=== PATIENT | female | born 2000 | race Caucasian/White ===

== ENCOUNTER 2019-01-16 00:01 | Inpatient (IN) | payer OTHER ==
[~2019-01-16] VITALS: Ht 162.6 cm; Wt 99.0 kg
[~2019-01-16 00:01] MED LIST: DEPO-PROVER150 MG/ML IM; IBUPROFEN400 MG PO
--- NOTE | 2019-01-17 11:22 | PR ---
[facility] [address] [facility] [place], [place] [address] Signed Progress Notes IP Datetime Report Generated by CPN: 01/17/2019 11:22 PROGRESS NOTES: [id number] Impression: Normal progression of labor; Reassuring heart rate Plan: Continue present management; Anticipate Vaginal Delivery Informed Consent Obtain: Vaginal Delivery VITAL SIGNS: [id number] Vital Signs: Reviewed; Within Normal Limits EXAM: [id number] Dilatation: 6.0 Effacement: 100 Station: -2 Uterine Contractions: q 1-3 minutes MEMBRANES: [id number] Membrane Status: Intact Comments: Pt seen and evaluted. Doing well. Comfortable w / epidural. Pt making good cervical change. Will continue to monitor FHT closely. Anticipate Fetus A: [id number] FHR Baseline: 150 Variability: Moderate 6-25bpm Accelerations: 15X15 Decelerations: Late FHR Category: Category II Presentation: Vertex Comments on Fetus A: No evidence of metabolic acidosis Fetus B: [id number] Signing Physician: Haydee Hi DO Copies: ~ *Electronically Signed* 01/17/19 1122 HAYDEE HI DO PATIENT NAME: JEAN-CLAUDE WOO PROGRESS NOTE DATE OF : 99 PHYSICIAN: HAYDEE HI DO RPT #: [id number] REPORT IS CONFIDENTIAL AND NOT TO BE RELEASED WITHOUT AUTHORIZATION
--- NOTE | 2019-01-17 13:34 | PR ---
[facility] [address] [place], [place] [address] Signed Progress Notes IP Datetime Report Generated by CPN: 01/17/2019 13:34 PROGRESS NOTES: [id number] Impression: Normal progression of labor Procedures: Artificial ROM Plan: Anticipate Vaginal Delivery Informed Consent Obtain: Vaginal Delivery VITAL SIGNS: [id number] Vital Signs: Reviewed; Within Normal Limits EXAM: [id number] Dilatation: 8.5 Effacement: 95 Station: -2 Uterine Contractions: q 1-3 minutes MEMBRANES: [id number] Membrane Status: Ruptured Amniotic Fluid Color: Meconium, Heavy ROM Note: Reviewed AROM and verbal consent obtained. AROM performed easily after confirming vertex well applied. Thick meconium stained fluid noted. Reviewed w/ pt Comments: Pt seen and examined. Doing well. Comfortable w/ ctxs. AROM performed as above. FHT reassuring. Continue expectant management and anticipate . All questions answered. Fetus A: [id number] FHR Baseline: 150 Variability: Moderate 6-25bpm Accelerations: 15X15 Decelerations: Variable FHR Category: Category II Presentation: Vertex Comments on Fetus A: No evidence of metabolic acidosis Fetus B: [id number] Signing Physician: Haydee Hi DO Copies: ~ *Electronically Signed* 01/17/19 1334 HAYDEE HI DO PATIENT NAME: JEAN-CLAUDE WOO PROGRESS NOTE DATE OF : 99 PHYSICIAN: HAYDEE HI #: [id number] REPORT IS CONFIDENTIAL AND NOT TO BE RELEASED WITHOUT AUTHORIZATION
--- NOTE | 2019-01-17 15:30 | PR ---
[facility] [address] [place], [place] [address] Signed Progress Notes IP Datetime Report Generated by CPN: 01/17/2019 15:30 PROGRESS NOTES: [id number] Impression: Normal progression of labor Procedures: Sterile Vag Exam Plan: Continue present management; Anesthesia consult Other Plans: Anesthesia eval for epidural re-bolus Informed Consent Obtain: Vaginal Delivery VITAL SIGNS: [id number] Vital Signs: Reviewed; Within Normal Limits EXAM: [id number] Dilatation: 9.0 Effacement: 100 Station: 0 Uterine Contractions: Difficult to trace w/ tocometer. Q 2-3 min per pt MEMBRANES: [id number] Membrane Status: Ruptured Amniotic Fluid Color: Meconium, Heavy ROM Note: Reviewed AROM and verbal consent obtained. AROM performed easily after confirming vertex well applied. Thick meconium stained fluid noted. Reviewed w/ pt Comments: Pt seen and evaluated. Doing well, but Ctxs more uncomfortable and having some nausea/vomiting. Anesthesia notified to evaluate for epidural bolus. Anticipate . Reviewed anticipated course of delivery w/ pt. All questions answered Fetus A: [id number] FHR Baseline: 145 Variability: Moderate 6-25bpm Accelerations: 15X15 Decelerations: Early FHR Category: Category I Presentation: Vertex Other Presentation: KALI Comments on Fetus A: No evidence of metabolic acidosis Fetus B: [id number] Signing Physician: Haydee Hi DO Copies: *Electronically Signed* 01/17/19 4998 HAYDEE HI DO PATIENT NAME: JEAN-CLAUDE WOO PROGRESS NOTE DATE OF : 99 PHYSICIAN: HAYDEE HI DO RPT #: [id number] REPORT IS CONFIDENTIAL AND NOT TO BE RELEASED WITHOUT AUTHORIZATION [address] [place], [place] [address] Signed ~ *Electronically Signed* 01/17/19 1530 HAYDEE HI DO PATIENT NAME: JEAN-CLAUDE WOO PROGRESS NOTE DATE OF : 99 PHYSICIAN: HAYDEE HI DO RPT #: [id number] REPORT IS CONFIDENTIAL AND NOT TO BE RELEASED WITHOUT AUTHORIZATION
--- NOTE | 2019-01-18 09:05 | PR ---
[facility] [address] [facility] [place], [place] [address] Signed PP Progress Notes Datetime Report Generated by CPN: 01/18/2019 09:05 SUBJECTIVE: [id number] Pain: Within normal limits Nausea/Vomiting: Denies Flatus: No Bowel Movement: No Vital Signs: [id number] Vital Signs: Reviewed EXAM: [id number] Cardiovascular: Normal Respiratory: Normal Abdomen/Uterus: Normal Lochia: Normal Vulva/Perineum: Not Done Breasts: Normal CVA Tenderness: Normal Extremities: Normal Incision: Not Applicable Progress: Normal Exam Comments: Fundus firm U -2 nontender IMPRESSION/PLAN/PROCEDURES: [id number] Impression: Normal progression Plan: Continue present management Progress Notes: Pt seen and examined. Doing well. Ambulating and tolerating full diet. Robert cath in place. well. Signing Physician: Haydee Hi DO Copies: ~ *Electronically Signed* 01/18/19 09 HAYDEE HI DO PATIENT NAME: JEAN-CLAUDE WOO PROGRESS NOTE DATE OF : 99 PHYSICIAN: HAYDEE HI DO RPT #: [id number] REPORT IS CONFIDENTIAL AND NOT TO BE RELEASED WITHOUT AUTHORIZATION
--- NOTE | 2019-01-19 12:17 | PR ---
[facility] [address] [facility] [place], [place] [address] Signed PP Progress Notes Datetime Report Generated by CPN: 01/19/2019 12:17 SUBJECTIVE: [id number] Pain: Within normal limits Nausea/Vomiting: Present Flatus: Yes Bowel Movement: Yes Vital Signs: [id number] Vital Signs: Reviewed; Within Normal Limits EXAM: [id number] Cardiovascular: Normal Respiratory: Normal Abdomen/Uterus: Normal Lochia: Normal Vulva/Perineum: Not Done Breasts: Not Done CVA Tenderness: Normal Extremities: Normal Incision: Not Applicable Progress: Normal Exam Comments: Fundus firm U-2 nontender IMPRESSION/PLAN/PROCEDURES: [id number] Impression: Normal progression Plan: Discharge Progress Notes: Pt seen and examined. Doing well. Ambulating, voiding, and tolerating full diet. Pain and lochia minimal. Bowel movement withtout difficulty. well. Desires d/c home Signing Physician: Haydee Hi DO Copies: ~ *Electronically Signed* 01/19/19 1217 HAYDEE HI DO PATIENT NAME: FÉLIX WOODRA ANDREW PROGRESS NOTE DATE OF : 99 PHYSICIAN: HAYDEE HI DO RPT #: [id number] REPORT IS CONFIDENTIAL AND NOT TO BE RELEASED WITHOUT AUTHORIZATION
== END 2019-01-19 16:40 | disposition home or self-care (01) | DRG 768 ==
LOC: FBC 00:01
PROVIDERS: ADMIT Obstetrics & Gynecology
PROC: 10E0XZZ Delivery of Products of Conception, External Approach (ICD-10-PCS; principal; 2019-01-17)
PROC: 0DQR0ZZ Repair Anal Sphincter, Open Approach (ICD-10-PCS; 2019-01-17)
PROC: 10907ZC Drainage of Amniotic Fluid, Therapeutic from Products of Conception, Via Natural or Artificial Opening (ICD-10-PCS; 2019-01-17)
PROC: 3E0P7VZ Introduction of Hormone into Female Reproductive, Via Natural or Artificial Opening (ICD-10-PCS; 2019-01-17)
PROC: 00HU33Z Insertion of Infusion Device into Spinal Canal, Percutaneous Approach (ICD-10-PCS; 2019-01-17)
PROC: 3E0R3BZ Introduction of Anesthetic Agent into Spinal Canal, Percutaneous Approach (ICD-10-PCS; 2019-01-17)
DX: O70.20 Third degree perineal laceration during delivery, unspecified (principal); Z37.0 Single live birth; Z3A.39 39 weeks gestation of pregnancy; O77.0 Labor and delivery complicated by meconium in amniotic fluid; O76 Abnormality in fetal heart rate and rhythm complicating labor and delivery; O69.1XX0 Labor and delivery complicated by cord around neck, with compression, not applicable or unspecified
CPT/HCPCS: 36415; 83030; 85027; 86850; 86900; 86901; J2405; J2590; J2790; J2795; J7120

== ENCOUNTER 2022-03-07 12:28 | Inpatient (IN) | payer OTHER ==
[~2022-03-07] VITALS: Ht 162.6 cm; Wt 96.6 kg
[2022-03-07] MEDS ORDERED: FEOSOL325 MG PO (15:53)
[2022-03-07] MEDS ORDERED: ACETAMINOPHEN325 M1 PO (15:53)
[2022-03-07] MEDS ORDERED: C-NATE DHA SOF1 EACH PO (15:54)
--- NOTE | 2022-03-07 20:26 | PR ---
[facility] [address] [place], [place] [address] Signed Progress Notes IP Datetime Report Generated by CPAruna: 03/07/2022 20:26 PROGRESS NOTES: [id number] Impression: Normal Progression of Labor; Reassuring Heart Rate Procedures: Sterile Vag Exam Plan: Continue Present Management Other Plans: Consider augmentation if no significant change at next check VITAL SIGNS: [id number] Vital Signs: Reviewed; Within Normal Limits VS Notable Details: No perineal lesioons or hemorrhoids. head is not low. Normal vagainla DC. Cervix is L/Cl/H EXAM: [id number] Dilatation: 4.0 Effacement: 80 Station: -3 Contractions: Irregular MEMBRANES: [id number] Comments: Pt seen and examined. More uncomfortable w/ contractions. Declines epidural. Reviewed minimal change on cervical exam, and discussing indications for augmentation w/ pitocin if needed at next check. All questions answered. FETUS A: [id number] FHR Baseline: 140 Variability: Moderate 6-25bpm Accelerations: 15X15 Decelerations: None FHR Category: Category I Comments on Fetus A: No evidence of metabolic acidosis FETUS B: [id number] Signing Physician: Haydee Hi DO Copies: ~ *Electronically Signed* 03/07/222025 HAYDEE HI DO PATIENT NAME: JEAN-CLAUDE WOO PROGRESS NOTE DATE OF : 99 PHYSICIAN: HAYDEE HI DO RPT #: [id number] REPORT IS CONFIDENTIAL AND NOT TO BE RELEASED WITHOUT AUTHORIZATION
--- NOTE | 2022-03-09 08:33 | PR ---
[facility] [address] [place], [place] [address] Signed PP Progress Notes Datetime Report Generated by CPN: 03/09/2022 08:33 SUBJECTIVE: [id number] Pain: Within Normal Limits Nausea/Vomiting: Denies Flatus: Yes Bowel Movement: No Vital Signs: [id number] Vital Signs: Reviewed EXAM: Ongoing Cardiovascular: Normal Respiratory: Normal Abdomen/Uterus: Normal Lochia: Normal CVA Tenderness: Normal Extremities: Normal Progress: Normal Exam Comments: General: NAD, sleeping soundly, easily awoken Lungs: no dyspnea/ retractions CV: RRR Abd: SNTND Ext: no edema, neg Mya's BL IMPRESSION/PLAN/PROCEDURES: [id number] Impression: Normal Progression Other Impression: clusterfeeding overnight, intermittent elevated BP reviewed Plan: Continue Present Management; Discharge Other Plans: DC Pending normal BP Procedures: Rhogam Progress Notes: Pt is a 22 yo PPD#1 s/p -intermittently elevated BP overnight, during clusterfeeding/ after ambulation. Asymptomatic -Otherwise unremarkable course: ambulating, voiding, tolerating regular diet, lochia light, cramping well-controlled with motrin -Requesting DC to home today Awaiting Rhogam Anticipate DC to home after serial normotensive BPs, if elevated will reassess DC plan Signing Physician: Herman Self DO *Electronically Signed* 03/09/22 0833 HERMAN SELF DO PATIENT NAME: JEAN-CLAUDE WOOSE PROGRESS NOTE DATE OF : 99 PHYSICIAN: HERMAN SELF DO RPT #: [id number] REPORT IS CONFIDENTIAL AND NOT TO BE RELEASED WITHOUT AUTHORIZATION [address] [place], [place] [address] Signed Copies: ~ *Electronically Signed* 03/09/22 0833 HERMAN SELF DO PATIENT NAME: JEAN-CLAUDE WOO LYANISE PROGRESS NOTE DATE OF : 99 PHYSICIAN: HERMAN SELF DO RPT #: [id number] REPORT IS CONFIDENTIAL AND NOT TO BE RELEASED WITHOUT AUTHORIZATION
== END 2022-03-09 12:36 | disposition home or self-care (01) | DRG 807 ==
LOC: FBC 12:28
PROVIDERS: ADMIT Obstetrics & Gynecology; ATTEND Obstetrics & Gynecology
PROC: 10E0XZZ Delivery of Products of Conception, External Approach (ICD-10-PCS; principal; 2022-03-07)
PROC: 0KQM0ZZ Repair Perineum Muscle, Open Approach (ICD-10-PCS; 2022-03-07)
PROC: 3E0R3BZ Introduction of Anesthetic Agent into Spinal Canal, Percutaneous Approach (ICD-10-PCS; 2022-03-07)
PROC: 00HU33Z Insertion of Infusion Device into Spinal Canal, Percutaneous Approach (ICD-10-PCS; 2022-03-07)
PROC: 10907ZC Drainage of Amniotic Fluid, Therapeutic from Products of Conception, Via Natural or Artificial Opening (ICD-10-PCS; 2022-03-07)
DX: O69.81X0 Labor and delivery complicated by cord around neck, without compression, not applicable or unspecified (principal); Z37.0 Single live birth; Z3A.39 39 weeks gestation of pregnancy; O70.1 Second degree perineal laceration during delivery; O26.893 Other specified pregnancy related conditions, third trimester; Z67.41 Type O blood, Rh negative; Z79.899 Other long term (current) drug therapy
CPT/HCPCS: 01960; 36415; 83030; 85027; 86850; 86900; 86901; A9270; J2590; J2790; J2795

== ENCOUNTER 2025-03-09 20:56 | Emergency (ER) | payer OTHER ==
[~2025-03-09] VITALS: Ht 152.4 cm; Wt 84.7 kg
[~2025-03-09 20:56] MED LIST changes: +ACETAMINOPHEN325 M1 PO; +C-NATE DHA SOF1 EACH PO; +FEOSOL325 MG PO; +NEURONTIN400 MG PO; +PREDNISONE20 MG PO
[2025-03-09 21:24] LABS: BASOPHILS 0.6 % (0.1-1.2); EOSINOPHILS 1.4 % (0.7-5.8); LYMPHOCYTES 32.4 % (19.3-51.7); MCH 28.7 PG (25.6-32.2); MCHC 32.3 g/dL (32.2-35.5); MCV 88.8 fL (79.4-94.8); MONOCYTES 6.5 % (4.7-12.5); NEUTROPHILS 58.8 % (34.0-71.1); RBC 4.39 M/uL (3.93-5.22)
[2025-03-09 21:49] LABS: ALT (SGPT) 12 U/L (14-59); AST (SGOT) 14 U/L (15-37); GLOMERULAR FILTRATION RATE,EST 107 mL/min (>60); PROTEIN, TOTAL 7.3 g/dL (6.4-8.2); TSH, 3RD GENERATION 1.923 uIU/mL (0.358-3.740); UREA NITROGEN 9 mg/dL (7-18)
[2025-03-09] MEDS ORDERED: CYCLOBENZAPRINE10 MG PO (21:55)
[2025-03-09] MEDS ORDERED: CYCLOBENZAPRINE HCL 10 MG HOME.PACK PO ONE (22:00)
[2025-03-09 22:07] VITALS: BP 113/78
--- NOTE | 2025-03-10 12:17 | EKG ---
[facility] [address] [facility] [place], [place] [address] Signed Normal sinus rhythm with sinus arrhythmia Nonspecific ST and T wave abnormality Abnormal ECG No previous ECGs available Confirmed by Waleska Viera MD ([id number]) on 03/10/2025 12:17:06 PM Electronically Signed By: WALESKA VIERA MD 03/10/25 1217 PATIENT NAME: JEAN-CLAUDE WOO Electrocardiogram DATE OF : 99 PHYSICIAN: WALESKA VIERA MD REPORT #: [id number] REPORT IS CONFIDENTIAL AND NOT TO BE RELEASED WITHOUT AUTHORIZATION
== END 2025-03-09 22:10 | disposition home or self-care (01) ==
LOC: ED 20:56
PROVIDERS: Family Medicine
DX: R07.89 Other chest pain (principal)
CPT/HCPCS: 36415; 71045; 80053; 83735; 84443; 84484; 85025; 93005; 93010; 99285-25